=== PATIENT | male | born 1975 | race Hispanic/Latino ===

== ENCOUNTER 2025-02-08 09:15 | Emergency (ER) | payer SELFPAY ==
[2025-02-08 09:58] LABS: Bacteria/HPF None Seen HPF (None Seen); CAUTI Indications for Culture Dysuria,urgency,freq; Glucose, Urine (Dipstick) Normal (Negative); Leukocyte Negative Leu/uL (Negative); Protein, Urine (Dipstick) Negative (Neg-Trace); RBC/HPF 0-3 HPF (0-3); Specific Gravity, Urine 1.019 (1.002-1.036); WBC/HPF 0-3 HPF (0-3)
[2025-02-08 10:01] LABS: Urine Culture Reflex No No
[2025-02-08] MEDS ORDERED: HYDROcodone/Acetaminophen 5/325 mg Tablet ONE (11:14)
== END 2025-02-08 12:14 | disposition home or self-care (01) ==
LOC: ERS 09:15
DX: M54.50 Low back pain, unspecified (principal)
CPT/HCPCS: 74176; 81001; 96372